=== PATIENT | female | born 1955 | race Caucasian/White ===

== ENCOUNTER 2016-05-08 16:52 | Emergency (ER) | payer BC ==
[2016-05-08 16:58] VITALS: TEMP 97; BMI 28.3
--- NOTE | 2016-05-08 17:19 | PDOC ---
History of Present Illness - General Chief Complaint: Syncope/Near Syncope Stated Complaint: SYNCOPE Time Seen by Provider: 05/08/16 16:57 History Source: Patient Exam Limitations: No Limitations - History of Present Illness Initial Comments: 05/08/16 17:12 61-year-old female with no past medical history presents the ED with syncopal episode. Patient was here visiting her brother when she found him in the bed and then collapsed into her son's arms. Patient states was not expecting to find him and was told to come to the ER since her brother had a heart attack. Patient currently denies headache, dizziness, chest pain, shortness of breath, nausea, or weakness. Patient states is fine and does not want to be seen. I recommend patient have at least an EKG and patient was given something to drink. Presenting Symptoms: Syncope Timing/Duration: reports: resolved prior to arrival Severity/Quality: reports: moderate Prior Chest Pain/Cardiac Workup: reports: No prior chest pain Associated Symptoms: Yes: Syncope. No: Chest Pain/pressure Past History - Past Medical History Allergies/Adverse Reactions: Allergies Allergy/AdvReac Type Severity Reaction Status Date / Time No Known Allergies Allergy Verified 05/08/16 16:57 Home Medications: Ambulatory Orders NK [No Known Home Medication] 05/08/16 Thyroid Disease: No - Psycho/Social/Smoking Cessation Hx Anxiety: No Suicidal Ideation: No Smoking History: Never smoked Have you smoked in the past 12 months: No Information on smoking cessation initiated: No Hx Alcohol Use: No Drug/Substance Use Hx: No Substance Use Type: None Patient Lives Alone: No Lives with/in: spouse/SO Review of Systems - Review of Systems Able to Perform ROS?: Yes Constitutional: No: Symptoms Reported HEENTM: No: Symptoms Reported Respiratory: No: SOB with Exertion Cardiac (ROS): Yes: Syncope ABD/GI: No: Symptoms Reported : No: Symptoms Reported Musculoskeletal: No: Symptoms Reported Integumentary: No: Symptoms Reported Neurological: No: Symptoms reported Endocrine: No: Symptoms Reported *Physical Exam - Vital Signs Last Vital Signs Temp Pulse Resp BP Pulse Ox 97.0 F L 129 H 18 117/85 100 05/08/16 16:53 05/08/16 16:53 05/08/16 16:53 05/08/16 16:53 02/09/17 16:53 - Physical Exam General Appearance: Yes: Nourished, Appropriately Dressed. No: Apparent Distress HEENT: negative: Pale Conjunctivae Neck: positive: Supple Respiratory/Chest: positive: Lungs Clear, Normal Breath Sounds. negative: Respiratory Distress, Accessory Muscle Use Cardiovascular: positive: Regular Rhythm, Regular Rate (91). negative: Murmur Gastrointestinal/Abdominal: positive: Soft. negative: Tenderness Extremity: positive: Normal Capillary Refill. negative: Pedal Edema Integumentary: positive: Normal Color, Warm, Moist. negative: Swelling Neurologic: positive: Motor Strength 5/5 (ambulatory) Heart Score/ECG Review - ECG Intrepretation Rhythm: Regular Rhythm (rate 90. sinus rhythm with PVC. qTC 442 ms) Medical Decision Making - Medical Decision Making 05/08/16 17:20 Patient status post witnessed syncopal episode with her son catching her causing no injury. Patient likely likely vasovagal when she went to her room and found her brother after having a cardiac arrest which she was unaware of. Patient states had no chest pain or shortness of breath or nausea but did feel lightheaded prior to the episode. Patient denies history of diabetes and states that eat today. Patient with normal vital signs here requesting to leave and not be seen. I recommend patient she have at least an EKG drink some apple juice and rest with warm blankets until returning to her brother's bedside 05/08/16 18:07 Pt remains asymptomatic. Will repeat vitals. Pt had crackers and requesting to be discharged so that she may with her family during a trying time. *DC/Admit/Observation/Transfer Diagnosis at time of Disposition: Syncope and collapse - Discharge Dispostion Disposition: HOME - Patient Instructions Printed Discharge Instructions: DI for Syncope in Adults (Fainting) Additional Instructions: Please drink plenty of fluids and eat well balanced meals. Utilize your resources and support systems during this trying time. You may return to the ED at any given time.
[2016-05-08 18:23] VITALS: BP 127/90; PULSE 80
--- NOTE | 2016-05-09 11:10 | EKG ---
Test Reason : Blood Pressure : / mmHG Vent. Rate : 090 BPM Atrial Rate : 090 BPM P-R Int : 144 ms QRS Dur : 094 ms QT Int : 362 ms P-R-T Axes : 078 062 069 degrees QTc Int : 442 ms SINUS RHYTHM WITH FREQUENT PREMATURE VENTRICULAR COMPLEXES POSSIBLE LEFT ATRIAL ENLARGEMENT NO PREVIOUS ECGS AVAILABLE Confirmed by LISET MARTINEZ MD ([id number]) on 05/09/2016 11:10:21 AM Referred By: Confirmed By:LISET MARTINEZ MD
== END 2016-05-08 18:37 | disposition home or self-care (01) ==
LOC: JER 16:52
DX: R55 Syncope and collapse (principal); Z63.4 Disappearance and death of family member
CPT/HCPCS: 93005; 93010; 99282-25